=== PATIENT | male | born 1965 | race Caucasian/White ===

== ENCOUNTER 2017-04-07 08:23 | Inpatient (IN) | payer MEDICARE, MEDICAID ==
[~2017-04-07] VITALS: Ht 170.2 cm; Wt 81.6 kg
--- NOTE | 2017-04-07 08:23 | NUR ---
Patient ambulated quickly to bed 09.
--- NOTE | 2017-04-07 08:24 | NUR ---
EKG at bedside.
[2017-04-07] MEDS ORDERED: KETOROLAC 30 MG/ML VIAL IVP ONE (08:25)
[2017-04-07] MEDS ORDERED: ONDANSETRON 4 MG/2 ML VIAL IVP ONE (08:25)
[2017-04-07 08:28] VITALS: BP 154/86
--- NOTE | 2017-04-07 08:40 | NUR ---
51/M BIB FAMILY FOR ACUTE 1010 CHEST PAIN STARTED THIS AM WHILE ON THE TOILET. ALSO STS VOMITING, APPEARS DIAPHORETIC. SEEN AT [facility] FOR DIVERTICULITIS PAIN. -HX HIATAL HERNIA, SWOLLEN PROSTATE, DIVERTICULITIS, ANXIETY, DEPRESSION -rX DENIES; DENIES Diearrhea; SKIN IS PINK/WARM/DRY; AAOX4 WITH EVEN AND STEADY GAIT; LUNGS CLEAR BL; HR EVEN AND REGULAR; PT DENIES ANY FEVER, CP, SOB, OR COUGH AT THIS TIME; PATIENT STATES PAIN OF 10/10 AT THIS TIME; VSS; PATIENT POSITIONED FOR COMFORT; HOB ELEVATED; BEDRAILS UP X2; BED DOWN. ER MD MADE AWARE OF PT STATUS.
[2017-04-07] MEDS ORDERED: [UNRECOGNIZED DRUG - CODE] PO (08:41)
[2017-04-07] MEDS ORDERED: ONDANSETRON ODT 4 MG TABLET (08:41)
[2017-04-07] MEDS ORDERED: ESCITALOPRAM OXALATE 10 MG (08:41)
[2017-04-07] MEDS ORDERED: PANTOPRAZOLE 40 MG (08:41)
[2017-04-07] MEDS ORDERED: ALPR0.5T2 PO (08:41)
[2017-04-07] MEDS ORDERED: LEVO0.0841 PO (08:41)
[2017-04-07] MEDS ORDERED: [UNRECOGNIZED DRUG - OTHER] (08:41)
[2017-04-07] MEDS ORDERED: HYDROCODONE (08:41)
--- NOTE | 2017-04-07 08:43 | NUR ---
Dr. Bhakta evaluating patient at bedside.
[2017-04-07] MEDS ORDERED: DICYCLOMINE HCL LIQUID 20 MG, ALUMINUM HYD/MAG/SIMETHICONE 30 ML, LIDOCAINE VISCOUS 2% ... PO ONE ×3 (08:45)
--- NOTE | 2017-04-07 08:53 | NUR ---
XRAY at bedside.
[2017-04-07] MEDS ORDERED: MORPHINE SULFATE 4 MG/ML SYR IVP ONE (08:55)
[2017-04-07 09:12] LABS: HEMATOCRIT 52.1 % (36-52); HEMOGLOBIN 17.1 g/dL (12.0-18.0); MEAN CORPUSCULAR HEMOGLOBIN 31 pg (27-31); MEAN CORPUSCULAR HGB CONC 33 g/dL (33-37); MEAN CORPUSCULAR VOLUME 94 fL (80-94); PLATELET COUNT (AUTO) 203 K/uL (140-450); RED BLOOD CELL COUNT(AUTO) 5.52 MIL/uL (4.20-6.10); WHITE BLOOD COUNT (AUTO) 8.3 K/uL (4.8-10.8)
[2017-04-07 09:13] LABS: CARBON DIOXIDE 21.7 mmol/L (21-32); CREATININE 1.3 mg/dL (0.7-1.3); POTASSIUM 3.7 mmol/L (3.5-5.1)
[2017-04-07 09:15] LABS: PROTHROMBIN TIME 10.7 secs (10.8-13.4)
[2017-04-07 09:19] LABS: ALBUMIN 4.3 g/dL (3.4-5.0); TOTAL BILIRUBIN 0.8 mg/dL (0.0-1.0)
[2017-04-07 09:21] LABS: EOSINOPHILS % (MANUAL) 2 % (0-4); LYMPHOCYTES % (MANUAL) 28 % (20-46); MONOCYTES % (MANUAL) 7 % (5-12)
[2017-04-07] MEDS ORDERED: HYDROmorphone 1 MG/ML AMP IVP ONE ×2 (09:45→10:30)
--- NOTE | 2017-04-07 10:58 | NUR ---
Patient will be admitted to care of DR GRADY. Admited to TELE. Will go to room 122A. Belongings list completed. Report to RD JOHN.
--- NOTE | 2017-04-07 11:15 | NUR ---
AWAITING ADMITTING ORDERS BEFORE ACCEPTED TO TELE
[2017-04-07] MEDS ORDERED: HYDROcodone/APAP 5/325 MG 1 TAB TAB PO PRN (11:30)
[2017-04-07] MEDS ORDERED: ACETAMINOPHEN 325 MG TAB PO PRN (11:30)
[2017-04-07] MEDS ORDERED: NITROGLYCERIN 0.4 MG TAB SL PRN (11:30)
[2017-04-07] MEDS ORDERED: ZOLPIDEM 5 MG TAB PO PRN (11:30)
[2017-04-07] MEDS ORDERED: ALUMINUM HYD/MAG/SIMETHICONE 30 ML UDC PO PRN (11:30)
[2017-04-07] MEDS ORDERED: ONDANSETRON 4 MG/2 ML VIAL IVP PRN (11:30)
[2017-04-07] MEDS ORDERED: MORPHINE SULFATE 2 MG/ML SYR IVP PRN (11:30)
[2017-04-07 11:45] VITALS: BP 145/95
[2017-04-07] MEDS: DEXT 5% /NACL 0.9% 1,000 ML IV SCH ×2 (11:45→21:51)
--- NOTE | 2017-04-07 11:45 | NUR ---
PATIENT WAS TRANSFERRED FROM THE ER. PATIENT IS DIAGNOSED WITH ABDOMINAL PAIN, CHEST PAIN, N/V X 3 DAYS. PATIENT WAS ORIENTED TO STAFF, AND ROOM, CALL LIGHT WITHIN REACH. PATIENT IS AWAKE, ALERT ORIENTED X4, AMBULATE FROM GURNEY TO BED, STEAD GAIT. RESPIRATION EVEN, UNLABOR, ON ROOM AIR. SKIN WARM DRY AND INTACT. IV 20G RIGHT AC. PATIENT COMPLAINS OF ABDOMINAL PAIN 10/10. MORPHINE OFFERED BUT REFUSED PER PATIENT. PATIENT STATED "MORPHINE DOES NOT WORK FOR ME, ONLY DILAUDID WORKS". PAGED DR. BLOCK REGARDING PATIENT'S REQUEST FOR DILAUDID. FAMILY AT BEDSIDE. VS TAKEN. MRSA SWAPPED. PATIENT IS PLACED ON HEAD OF STRATEGY. WILL CONTINUE TO [facility]
--- NOTE | 2017-04-07 13:00 | NUR ---
DR GRADY CAME SEE THE PATIENT AT BEDSIDE, PLAN OF CARE WAS DISCUSSED. DILAUDID WAS ORDERED PER REQUEST. WILL MEDICATE PER ORDER
[2017-04-07] MEDS: HYDROmorphone 1 MG/ML AMP IVP PRN ×2 (13:35→23:02)
--- NOTE | 2017-04-07 13:56 | NUR ---
CM NOTE PER GOVERNMENT EMPLOYEE CHARLENE, REVIEWS SHOULD BE SENT TO BOTH [facility] AND [facility]. CALLED [facility] AND [facility] AND BOTH DON'T HAVE ASSIGNED CM YET FOR THE PATIENT AND PATIENT'S ADMISSION NOT YET IN THEIR SYSTEM. INITIAL REVIEW FAXED TO [facility] [phone] # [phone] AND TO [facility] [phone] # [phone]
[2017-04-07] MEDS ORDERED: MAGNESIUM HYDROXIDE 2400 MG/30 ML UDC PO SCH (15:00)
[2017-04-07 16:00] VITALS: BP 113/50
[2017-04-07 17:16] LABS: CREATINE KINASE MB 1.6 ng/mL (0-3.6)
--- NOTE | 2017-04-07 19:40 | NUR ---
REPORT GIVEN TO RD MECHANICAL ENGINEER NURSE, PT IN STABLE CONDITION.
--- NOTE | 2017-04-07 19:41 | NUR ---
PATIENT REPORT RECEIVED FROM MORNING NURSE. PATIENT IS AWAKE AND ALERT. NO SIGNS AND SYMPTOMS OF DISTRESS NOTED, NO COMPLAINTS OF PAIN AT THIS TIME. IV SITE IS NOTED ON RIGHT AC. BRINK CATHETER IN PLACE. BED IN LOWEST POSITION, SIDE RAILS UP AND CALL LIGHT WITHIN REACH. WILL CONTINUE TO MONITOR. Addendum: 04/08/17 at 0159 by Chet Evans RN WRONG PATIENT
--- NOTE | 2017-04-07 19:41 | NUR ---
PATIENT REPORT RECEIVED FROM MORNING NURSE. PATIENT IS AWAKE, ALERT AND ORIENTED. NO SIGNS AND SYMPTOMS OF DISTRESS NOTED. NO COMPLAINTS OF PAIN AT THIS TIME. PATIENT'S IS AT BEDSIDE. BED IN LOWEST POSITION, SIDE RAILS UP AND CALL LIGHT WITHIN REACH. WILL CONTINUE TO MONITOR.
[2017-04-07] MEDS: NICOTINE TRANSD SYS 14 MG/24 HR PATCH TD SCH (19:55)
[2017-04-07 20:00] VITALS: BP 131/72
[2017-04-07] MEDS ORDERED: NICOTINE TRANSD SYS 14 MG/24 HR PATCH TD SCH (20:30)
[2017-04-07] MEDS: SENNA 8.6 MG TAB PO SCH (20:40)
[2017-04-07] MEDS: POLYETHYLENE GLYCOL 17 GM/PKT PO SCH (20:41)
[2017-04-07] MEDS ORDERED: AMITRIPTYLINE 10 MG TAB PO SCH (21:00)
--- NOTE | 2017-04-07 21:00 | NUR ---
UNABLE TO RETRIEVE NICOTINE PATCH FROM [facility]. PHARMACY AND [facility]IOR [facility] OFFICE ASSISTANT NOTIFIED. PATCH WILL BE APPLIED ROUTINELY STARTING TOMORROW 0900
[2017-04-08] VITALS: BP 127/83
--- NOTE | 2017-04-08 | NUR ---
CHECKED ON PATIENT, PATIENT IS ASLEEP. NO SIGNS AND SYMPTOMS OF DISTRESS NOTED. BED IN LOWEST POSITION, SIDE RAILS UP AND CALL LIGHT WITHIN REACH.
--- NOTE | 2017-04-08 02:00 | NUR ---
CHECKED ON PATIENT, PATIENT IS ASLEEP. NO SIGNS AND SYMPTOMS OF DISTRESS NOTED. BED IN LOWEST POSITION, SIDE RAILS UP AND CALL LIGHT WITHIN REACH.
[2017-04-08 04:00] VITALS: BP 111/69
[2017-04-08 05:44] LABS: HEMATOCRIT 43.2 % (36-52); HEMOGLOBIN 14.7 g/dL (12.0-18.0); MEAN CORPUSCULAR HEMOGLOBIN 32 pg (27-31); MEAN CORPUSCULAR HGB CONC 34 g/dL (33-37); MEAN CORPUSCULAR VOLUME 95 fL (80-94); PLATELET COUNT (AUTO) 177 K/uL (140-450); RED BLOOD CELL COUNT(AUTO) 4.54 MIL/uL (4.20-6.10); WHITE BLOOD COUNT (AUTO) 8.3 K/uL (4.8-10.8)
[2017-04-08 06:24] LABS: CARBON DIOXIDE 28.9 mmol/L (21-32); CREATININE 1.1 mg/dL (0.7-1.3); POTASSIUM 3.9 mmol/L (3.5-5.1)
[2017-04-08] MEDS ORDERED: LEVOTHYROXINE 0.088 MG TAB PO SCH (06:30)
[2017-04-08 06:43] LABS: LYMPHOCYTES % (MANUAL) 27 % (20-46); MONOCYTES % (MANUAL) 9 % (5-12)
[2017-04-08] MEDS: DEXT 5% /NACL 0.9% 1,000 ML IV SCH (06:52)
--- NOTE | 2017-04-08 07:17 | NUR ---
PATIENT REPORT GIVEN TO MORNING NURSE AT BEDSIDE. PATIENT IS IN STABLE CONDITION
--- NOTE | 2017-04-08 07:20 | NUR ---
RECEIVED PT REPORT AT BEDSIDE FROM NIGHT NURSE. PT IS AAOX4 AND SHOWS NO S/S OF ACUTE DISTRESS ON ROOM AIR. SKIN IS INTACT. PT STATES TOLERABLE 3/10 ABD PAIN AND REFUSED PAIN MEDICATION. IV NOTED ON THE R AC WITH IVF'S INFUSING WELL. ON TELE MONITOR. PT IS AMB. PT WAS EXPLAINED POC FOR TODAY AND VERBALIZED UNDERSTANDING. WILL CONTINUE TO MONITOR.
[2017-04-08 07:31] LABS: CREATINE KINASE MB 1.2 ng/mL (0-3.6)
[2017-04-08 07:39] VITALS: BP 115/74
[2017-04-08] MEDS ORDERED: ESCITALOPRAM 20 MG TAB PO SCH (09:00)
[2017-04-08] MEDS ORDERED: ALPRAZolam 0.5 MG TAB PO SCH (09:00)
[2017-04-08] MEDS ORDERED: DOCUSATE SODIUM 100 MG GELCAP PO SCH (09:00)
[2017-04-08] MEDS: SENNA 8.6 MG TAB PO SCH (09:20)
[2017-04-08] MEDS: NICOTINE TRANSD SYS 14 MG/24 HR PATCH TD SCH (09:20)
--- NOTE | 2017-04-08 09:20 | NUR ---
PATIENT HAS BEEN SCREENED AND CATEGORIZED HIGH NUTRITION RISK. PATIENT WILL BE SEEN WITHIN 1-2 DAYS OF ADMISSION. 04/08/17-04/09/[address]
[2017-04-08] MEDS: POLYETHYLENE GLYCOL 17 GM/PKT PO SCH (09:21)
--- NOTE | 2017-04-08 09:30 | NUR ---
ADMINISTERED SCHEDULED MEDICATIONS. PT TOLERATED WELL. PT STATED HE HAD A WATERY BM THIS AM. PT'S NEEDS MET AT THIS TIME. IS AT BEDSIDE. SCD'S IN PLACE. WILL CONTINUE TO MONITOR.
--- NOTE | 2017-04-08 10:28 | NUR ---
CM NOTE CONCURRENT REVIEW FAXED TO [facility] [phone] PH# [phone] [facility] [phone] PH# [phone]
--- NOTE | 2017-04-08 10:45 | NUR ---
PT IS LAYING IN BED AND SHOWS NO S/S OF ACUTE DISTRESS ON ROOM AIR. ALL NEEDS ME AT THIS TIME. BED IN LOW POSITION WITH CALL LIGHT WITHIN REACH.
[2017-04-08 12:00] VITALS: BP 116/66
--- NOTE | 2017-04-08 12:05 | NUR ---
PATIENT BEING SEEN BY DR GIVENS
--- NOTE | 2017-04-08 12:40 | NUR ---
SPOKE WITH DR Grant GRADY AND OKAYED FOR PATIENT TO BE DISCHARGED FROM CONSULTS RECOMMENDATION OF PT OKAY TO BE DISCHARGED.
--- NOTE | 2017-04-08 13:15 | NUR ---
PT HAS BEEN DISCHARGED. ALL DISCHARGE INSTRUCTIONS WERE GIVEN. ALL PAPERWORK SIGNED. ALL QUESTIONS ANSWERED. ALL BELONGINGS IN PATIENT'S POSSESSION. IV DISCONTINUED WITH CANNULA INTACT. WRISTBANDS AND TELE MONITOR REMOVED. OFFERED PT WHEELCHAIR AND PATIENT PREFERRED TO WALK OFF UNIT WITH PRESENT AT SIDE. PT AMB OFF UNIT WITH STEADY GAIT, DENIES PAIN, AND IN STABLE CONDITION.
== END 2017-04-08 13:15 | disposition home or self-care (01) | DRG 392 ==
LOC: MED 08:23 → MTU 11:31
PROVIDERS: ADMIT Internal Medicine Cardiovascular Disease; ATTEND Preventive Medicine Preventive Medicine/Occupational Environmental Medicine
DX: K58.1 Irritable bowel syndrome with constipation (principal); E03.9 Hypothyroidism, unspecified; F17.200 Nicotine dependence, unspecified, uncomplicated; F41.9 Anxiety disorder, unspecified; F32.9 Major depressive disorder, single episode, unspecified; K44.9 Diaphragmatic hernia without obstruction or gangrene; I10 Essential (primary) hypertension; G89.4 Chronic pain syndrome; R07.9 Chest pain, unspecified; F99 Mental disorder, not otherwise specified; F90.9 Attention-deficit hyperactivity disorder, unspecified type; Z79.899 Other long term (current) drug therapy
CPT/HCPCS: 36415; 71010; 74000; 76705; 76770; 80048; 80053; 82550; 82553; 83690; 83735; 83880; 84100; 84484; 85025; 85610; 85730; 87081; 93005; 96374; 96375; 96376; 99285; J1170; J1885; J2270; J2405; J7042; Q0092

== ENCOUNTER 2017-04-26 13:07 | Emergency (ER) | payer MEDICARE, MEDICAID ==
[~2017-04-26] VITALS: Ht 167.6 cm; Wt 81.2 kg
[~2017-04-26 13:07] MED LIST: ALPR0.5T2 PO; ESCITALOPRAM OXALATE 10 MG; HYDROCODONE; LEVO0.0841 PO; ONDANSETRON ODT 4 MG TABLET; PANTOPRAZOLE 40 MG; [UNRECOGNIZED DRUG - CODE] PO; [UNRECOGNIZED DRUG - OTHER]
[2017-04-26 13:16] VITALS: BP 134/60
--- NOTE | 2017-04-26 14:33 | NUR ---
PATIENT SEEN LEAVING ER LOBBY STATED HE WAS GOING SOMEWHERE ELSE.
== END 2017-04-26 14:33 | disposition left against medical advice (07) ==
LOC: MED 13:07
DX: R10.9 Unspecified abdominal pain (principal); Z53.21 Procedure and treatment not carried out due to patient leaving prior to being seen by health care provider